=== PATIENT | male | born 1965 | race Caucasian/White ===

== ENCOUNTER → 2019-09-06 | Day surgery (SDC) | payer BC ==
[~2019-09-06] MED LIST: Lactated Ringers 1,000 ML IV SCH; Midazolam 1 MG/ML 2 ML SDV IV ONE; Propofol 200 MG/20 ML SDV IV ONE; fentaNYL 100 MCG/2 ML SDV IV ONE
[2019-09-06 12:33] VITALS: BP 119/70; PULSE 57
--- NOTE | 2019-09-09 11:34 | OR ---
DATE OF OPERATION: 09/06/2019 PREOPERATIVE DIAGNOSIS: HEME-POSITIVE STOOL. POSTOPERATIVE DIAGNOSIS: HEME-POSITIVE STOOL. SURGEON: Wolf Wilks MD PROCEDURE: DIAGNOSTIC COLONOSCOPY. ANESTHESIA: MAC. COMPLICATIONS: None. SPECIMEN: None. FINDINGS: Normal full-length colonoscopy with prominent internal hemorrhoids. RECOMMENDATIONS: Followup colonoscopy every 10 years. INDICATIONS: The patient was in to see Dr. Romo for routine physical. His last colonoscopy was 5 years ago. He was found to have heme-positive stool. Dr. Romo sent him for diagnostic scope. DESCRIPTION OF PROCEDURE: The patient was prepped and draped, placed in the left lateral decubitus position. A lubricated Olympus colonoscope was inserted and easily advanced to the cecum. Direct visualization of the ileocecal valve and appendiceal orifice was accomplished. The bowel prep was adequate. Upon withdrawal of the scope, throughout the entire length of the colon, I could find no polyps, masses, ulceration, or bleeding sites. No vascular abnormalities or signs of colitis. There were no diverticula. The rectal vault was benign. Retroflexion showed some perianal hemorrhoid disease, not actively bleeding. Air was then suctioned, scope removed without complication. SALUD/NAHID /[id number]
== END ==
LOC: CC.SDS 10:08
PROVIDERS: ATTEND Family Medicine
DX: K64.8 Other hemorrhoids (principal); E78.5 Hyperlipidemia, unspecified; E55.9 Vitamin D deficiency, unspecified; N40.1 Benign prostatic hyperplasia with lower urinary tract symptoms; R35.1 Nocturia; M19.90 Unspecified osteoarthritis, unspecified site; Z98.890 Other specified postprocedural states; Z80.0 Family history of malignant neoplasm of digestive organs
CPT/HCPCS: G0121; J2250; J2704; J3010; J7120